=== PATIENT | female | born 1960 | race Hispanic/Latino ===

== ENCOUNTER 2022-11-21 09:53 | Emergency (ER) | payer BC ==
[2022-11-21] MEDS ORDERED: Diazepam 10 MG/2 ML SYRINGE ONE (10:57)
== END 2022-11-21 11:25 | disposition home or self-care (01) ==
LOC: ERS 09:53
DX: S39.012A Strain of muscle, fascia and tendon of lower back, initial encounter (principal); E78.00 Pure hypercholesterolemia, unspecified; X50.0XXA Overexertion from strenuous movement or load, initial encounter
CPT/HCPCS: 96372; 99283; J3360